=== PATIENT | male | born 1990 | race Caucasian/White ===

== ENCOUNTER 2021-08-12 14:11 | Emergency (ER) | payer OTHER, BC ==
[~2021-08-12] VITALS: Ht 170.2 cm; Wt 85.7 kg
[2021-08-12 14:15] VITALS: BP 161/85
[2021-08-12] MEDS ORDERED: ACETAMINOPHEN 325 MG TAB PO ONE (14:45)
[2021-08-12 16:12] VITALS: BP 137/81
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
== END 2021-08-12 16:13 | disposition home or self-care (01) ==
LOC: MED 14:11
DX: R07.89 Other chest pain (principal); M79.641 Pain in right hand; V49.9XXA Car occupant (driver) (passenger) injured in unspecified traffic accident, initial encounter; Y93.89 Activity, other specified; Y92.410 Unspecified street and highway as the place of occurrence of the external cause; Y99.8 Other external cause status
CPT/HCPCS: 71046; 73130; 99284